=== PATIENT | male | born 1975 | race Caucasian/White ===

== ENCOUNTER 2018-10-14 07:21 | Observation (INO) ==
[2018-10-14] MEDS ORDERED: Sodium Chloride 0.9% 1,000 ML PRIMARY IV ONE (07:42)
[2018-10-14] MEDS ORDERED: ASPIRIN 81 MG (BABY) CHEWABLE TABLET PO ONE (07:42)
--- NOTE | 2018-10-14 07:43 | EKG ---
[address] [address] Measurements Intervals [place] Rate: 68 P: 14 MT: 146 QRS: 67 QRSD: 92 T: 36 QT: 361 QTc: 378 Interpretive Statements SINUS RHYTHM WITH SINUS ARRHYTHMIA No previous ECG available for comparison Electronically Signed On 10-14-18 12:21:52 MST by Vignesh Marcano [id number]
[2018-10-14 07:47] LABS: BASOPHILS # (AUTO) 0.03 10*3/UL; BASOPHILS % (AUTO) 0.3 % (0-1); EOSINOPHILS # (AUTO) 0.26 10*3/UL; EOSINOPHILS % (AUTO) 2.7 % (0-8); Hematocrit [HCT] 49.4 % (42.0-52.0); Hemoglobin [HGB] 17.4 g/dL (14.0-18.0); LYMPHOCYTES # (AUTO) 2.69 10*3/uL; MEAN CORPUSCULAR HEMOGLOBIN 31.8 PG (27-31); MEAN CORPUSCULAR HGB CONC 35.2 g/dL (33-37); MEAN CORPUSCULAR VOLUME 90.3 FL (80-90); MEAN PLATELET VOLUME 10.5 FL (7.4-12.2); MONOCYTES # (AUTO) 0.74 10*3/UL (0.3-0.8); MONOCYTES % (AUTO) 7.7 % (5-15); NEUTROPHILS # (AUTO) 5.85 10*3/UL; NEUTROPHILS % (AUTO) 60.9 % (50-80); RED BLOOD COUNT 5.47 10^6/uL (4.70-6.10)
[2018-10-14 07:48] LABS: PLATELET MORPHOLOGY COMMENT NORMAL MORPHOLOGY (NORM); RBC MORPHOLOGY COMMENT NORMAL MORPHOLOGY (NORM); WBC MORPHOLOGY COMMENT NORMAL MORPHOLOGY (NORM)
[2018-10-14 07:58] LABS: BLOOD UREA NITROGEN 19 mg/dL (7-22); BUN/CREATININE RATIO 17.27 (6-20); SERUM ALBUMIN 5.3 g/dL (3.5-4.8)
--- NOTE | 2018-10-14 08:16 | DI ---
XR CXR 1VW 10/14/2018 7:42 AM [place] [facility] [place] Comparison: None. Findings: A single portable frontal view of the chest is submitted. Images demonstrate a small left pleural effusion with no focal consolidation. There is no large pneum othorax. The cardiomediastinal silhouette is within normal limits for technique. The osseous structur es are grossly unremarkable. Impression: Small left pleural effusion without focal consolidation.
--- NOTE | 2018-10-14 08:44 | PDOC ---
Chest Pain HPI - General Chief Complaint: Chest Pain Stated Complaint: CHEST PAIN Date Seen by Provider: 10/14/18 Time Seen by Provider: 07:25 Source: Patient, EMS Exam Limitations: POSITIVE: No limitations Treatment Prior to Arrival: REPORTS: Nitroglycerin, Oxygen, Aspirin Nurse's Notes Reviewed & Considered: Yes EMS Report Reviewed & Considered: Verbal - History of Present Illness Initial Comments: The patient is a 43-year-old male who arrives to the emergency room by walter mazariegos. 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 He states that he felt "like someone sitting on my chest" and states at least chest felt "tight" he states he had some associated nausea and vomited one time. Paramedics administered oxygen, 4 baby aspirin and a nitroglycerin sublingual, and the patient states that his chest pain improved fairly shortly thereafter. Patient rated the intensity of the chest pain as an 8-10 on a scale of 10 at the time the ambulance was summoned. Upon presentation to the emergency room the patient states that his pain is essentially gone. Patient has a history of asthma and GERD. No known cardiac problems. He smokes a pack of cigarettes per day. Body Location Affected: REPORTS: Chest Timing: REPORTS: Abrupt Duration: 1 hour Severity: Moderate Gone now, lasted (minutes):: 50 Context: REPORTS: Activity (Sitting in a van at work) Quality: REPORTS: "Pain", Pressure, Other ("Tightness ") Radiation: REPORTS: Shoulder (L) Associated Symptoms: REPORTS: Nausea, Vomiting (Times one), Shortness of Breath Modifying Factors: improves with: Nitroglycerin (Relieved following nitroglycerin administered by paramedics in the field), Oxygen, Aspirin Similar Symptoms Previously: No Recently seen/treated/hospitalized: No Any Prior Injuries Related to Current Complaint?: No - Patient Home Medications Home Medications: Home Medications Albuterol Neb Soln 0.083% 2 puff INHALATION Q4H PRN PRN 10/14/18 Mometasone/Formoterol [Dulera 200 Mcg/5 Mcg Inhaler] 2 puff INHALATION BID 10/14/18 - Patient Allergies Allergies/Adverse Reactions: Allergies Allergy/AdvReac Type Severity Reaction Status Date / Time No Known Allergies Allergy Verified 10/14/18 07:22 Past Medical History - heen HEENT History: Denies History Cardiovascular History: Denies History Respiratory History: Asthma Gastrointestinal History: GERD Genitourinary History: Denies History Endocrine History: Denies History Musculoskeletal History: Denies History Neurological History: Denies History Blood Disorders: Denies History Psychiatric History: Denies History History of Sexually Transmitted Diseases: No Male Reproductive History: Denies History Cancer History: Denies History In Past Year Been Physically Harmed or Verbally Threatened: No History of MDRO: No History of Other Communicable Diseases: No Tobacco Use: Current Every Day Smoker In the Past 12 Months, Have Used or Abuse Any Substance: None Previous Surgical History: Yes Type / Date of Surgery: tonsils Significant Family History: No pertinent family hx Past Medical History Reviewed: Reviewed - No Changes ROS - Limitations ROS Limitations: No Limitations Constitution: REPORTS: Denies Symptoms Cardiovascular: REPORTS: Chest Pain Respiratory: REPORTS: Shortness Of Breath Neurological: REPORTS: Denies Neuro Symptoms Gastrointestinal: REPORTS: Nausea, Vomitting (1 at onset; no nausea presently) Endocrine: REPORTS: Denies Symptoms Musculoskeletal: REPORTS: Denies MS Symptoms Genitourinary: REPORTS: Denies Symptoms Eyes: REPORTS: Denies Symptoms ENT: REPORTS: Denies Symptoms Skin: REPORTS: Denies Skin Symptoms Lympathic: REPORTS: Denies Lympathic Symptoms Immunologic: POSITIVE: Denies Symptoms Psychiatric: POSITIVE: Denies Psych Symptoms Chest Pain PE - General Appearance General Appearance: REPORTS: Alert, Cooperative, No Acute Distress, No Evidence of Trauma - HEENT HEENT: POSITIVE: Head Inspection Nml, Eyes Inspection Nml, Ears Inspection Nml, Nose Inspection Nml, Oral/Dental Inspect. Nml, Pharynx Inspect. Nml, PERRL, EOMI - Neck Neck: REPORTS: Normal Inspection, No Carotid Bruit - Respiratory Respiratory: REPORTS: No Respiratory Distress, Breath Sounds Normal, Chest Non- Tender - Cardiovascular Cardiovascular: REPORTS: Regular Rate and Rhythm, Heart Sounds Normal, Equal Pulses, Strong Pulses, No Murmur, No Gallop, No Friction Rub, No JVD Peripheral Pulses: Radial (R): 2+, Radial (L): 2+ - Abdomen Abdomen: Soft: (All Quadrants), Normal Bowel Sounds: (All Quadrants), Denies Tenderness: (All Quadrants), No Splenomegaly: (All Quadrants), No Hepatomegaly: (All Quadrants), No Guarding: (All Quadrants), No Rebound: (All Quadrants), No Palpable Pulse: (All Quadrants), No Palpabale Mass: (All Quadrants), No Distention: (All Quadrants), No Rigidity: (All Quadrants) - Skin Skin: REPORTS: Intact, Normal For Race, Warm, Dry, No Rash - Extremities Extremity: Non-Tender: (All Extremities), Normal ROM: (All Extremities), Normal Inspection: (All Extremities) - Neurological / Psychological Neurological: POSITIVE: Affect Apporpriate, Oriented X3, 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, Motor Normal, Sensation Normal Images - Complete Complete: 1 - Area described chest pain Chest Pain Progress - Results Reviewed by me Xrays/CTs/US Reviewed by me: Yes Discussed with Radiologist: Yes Radiology Findings: Chest x-ray shows a small left pleural effusion Lab Results Reviewed by Me: Yes (d-dimer and troponin negative) CBC and BMP: 10/14/18 07:00 10/14/18 07:00 Lab Results:: Laboratory Results 10/14/18 10/14/18 10/14/18 07:00 07:00 07:00 WBC 9.61 RBC 5.47 Hgb 17.4 Hct 49.4 MCV 90.3 H MCH 31.8 H MCHC 35.2 RDW Std Deviation 44.3 RDW Coeff of Lora 13.5 Plt Count 221 MPV 10.5 Immature Gran % (Auto) 0.4 Neut % (Auto) 60.9 Lymph % (Auto) 28.0 Shannon % (Auto) 7.7 Eos % (Auto) 2.7 Baso % (Auto) 0.3 Immature Gran # (Auto) 0.04 Neut # (Auto) 5.85 Lymph # (Auto) 2.69 Shannon # (Auto) 0.74 Eos # (Auto) 0.26 Baso # (Auto) 0.03 WBC Morphology Comment Normal morphology Plt Morphology Comment Normal morphology RBC Morph Comment Normal morphology D-Dimer 0.19 Sodium 144 Potassium 4.2 Chloride 106 Carbon Dioxide 24 Anion Gap 14 BUN 19 Creatinine 1.1 Estimated GFR > 60 BUN/Creatinine Ratio 17.27 Glucose 86 Calculated Osmolality 298.0 H Calcium 10.2 Total Bilirubin 0.8 AST 32 ALT 20 L Alkaline Phosphatase 81 CK-MB (CK-2) Troponin I Total Protein 8.9 H Albumin 5.3 H Globulin 3.6 Albumin/Globulin Ratio 1.40 10/14/18 07:00 WBC RBC Hgb Hct MCV MCH MCHC RDW Std Deviation RDW Coeff of Lora Plt Count MPV Immature Gran % (Auto) Neut % (Auto) Lymph % (Auto) Shannon % (Auto) Eos % (Auto) Baso % (Auto) Immature Gran # (Auto) Neut # (Auto) Lymph # (Auto) Shannon # (Auto) Eos # (Auto) Baso # (Auto) WBC Morphology Comment Plt Morphology Comment RBC Morph Comment D-Dimer Sodium Potassium Chloride Carbon Dioxide Anion Gap BUN Creatinine Estimated GFR BUN/Creatinine Ratio Glucose Calculated Osmolality Calcium Total Bilirubin AST ALT Alkaline Phosphatase CK-MB (CK-2) < 0.22 Troponin I < 0.012 Total Protein Albumin Globulin Albumin/Globulin Ratio EKG Interpreted/Reviewed By Me:: Yes (normal) EKG Interpretation:: POSITIVE: Normal Sinus Rhythm, Normal Rate, Normal Intervals, Normal Jennings, Normal QRS, Normal ST/T - Patient's Progress Pain Medication Addressed: POSITIVE: Other (Please Comment) (Patient had apparent relief with of chest pain with nitroglycerin, aspirin and oxygen start ed in the field by paramedics) School/Work Release Addressed: POSITIVE: Not Applicable Re-Examine Time: 08:40 Re-Examine Comment: Patient remained comfortable in the emergency room. Case discussed with the patient and the hospitalist on-call, . He was decided to admit the patient to rule out a cardiac etiology of his chest pain, and to further evaluate his left pleural effusion. Status: POSITIVE: Improved, Re-Examined Quality Measure Initiative: CP/AMI: POSITIVE: EKG, ASA - Consult Consult (If Yes, Name of Consulting MD & Time Called): Yes (, hospitalist, [id number] ) Consulting MD will see pt:: POSITIVE: In ED, [facility] [place] Admit Counseled: POSITIVE: Patient, RE: Lab Results, RE: Radiology Results, RE: DX, RE: Need for F/U Patient Care Time - Estimated PCT Patient Care Time (In Minutes): 45 Vital Signs - Recent Vital Signs Vital Signs: Blood pressure 115/82, heart rate 75, respiratory rate 16, temperature 90.8F, oxygen saturation on room air 94%. - VS Reviewed Vital Signs Reviewed: Yes Discharge Clinical Impression: Pleural effusion, Chest pain Condition: Fair Follow Up With: NONE,NONE [Primary Care Provider] - Date Decision to Admit to Inpatient: 10/14/18 Time Decision to Admit to Inpatient: 08:40
--- NOTE | 2018-10-14 09:12 | PDOC ---
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 He woke up this morning about 6 AM with chest pain radiating to the left arm and jaw accompanied by nausea and diaphoresis. The pain resolved after he had the nitroglycerin in the ER and is now chest pain-free. Other risk factors one pack of cigarettes a day Past Medical History Medical History: Asthma Tobacco Use: Current Every Day Smoker In the Past 12 Months, Have Used or Abuse Any of the Following Substance: None Medication / Allergies Home Medications: Home Medications Medication Instructions Recorded Confirmed Type Albuterol Neb Soln 0.083% 2 puff INHALATION Q4H PRN PRN 10/14/18 10/14/18 History Mometasone/Formoterol [Dulera 200 2 puff INHALATION BID 10/14/18 10/14/18 History Mcg/5 Mcg Inhaler] Allergies/Adverse Reactions: Allergies Allergy/AdvReac Type Severity Reaction Status Date / Time No Known Allergies Allergy Verified 10/14/18 07:22 Review of Systems - Review of Systems All Systems: Reviewed & No Additional Complaints Except as Stated - Cardiovascular Cardiovascular: REPORTS: Chest Pain. DENIES: Edema, Syncope, Palpitations - Gastrointestinal Gastrointestinal / Abdominal: REPORTS: Nausea - Neurological Neurologic: REPORTS: Negative System Review. DENIES: Headache, Numbness/Paresthesia, Tremors, Weakness, Seizures, Head Trauma, LOC, Dizziness, Confusion, Memory Loss, Difficulty Walking, Incoordination, Other, See HPI Exam - General General Appearance: No Acute Distress, Cooperative - Head Head Exam: Normal Inspection, Normocephalic, Atraumatic - Eye Eye Exam: POSITIVE: Normal Appearance, PERRL, EOMI, No Scleral Icterus - Neck Neck Exam: Normal Inspection, Full ROM, No Tenderness, No Lymphadenopathy, No Thyromegaly, JVP is not Raised - Respiratory Respiratory Exam: POSITIVE: Clear to Auscultation - Bilaterally, Breathing Non Labored, Normal To Percussion, Normal to Percussion and Palpation - Cardiovascular Cardiovascular Exam: POSITIVE: RRR, No Murmur, No Clicks, No Gallops, No Rubs, PMI Non-Displaced - GI/Abdominal GI/Abdominal Exam: POSITIVE: Normal Bowel Sounds, Non Tender, Non Distended, Soft, No Masses, No Hepatomegaly, No Splenomegaly, No Organomegaly - Extremities Extremities Exam: POSITIVE: No Clubbing Present, No Edema Present, No Cyanosis Present Results - Labs CBC and BMP: 10/14/18 07:00 10/14/18 07:00 Assessment and Plan - Patient Problems (1) Chest pain Current Visit: Yes Status: Acute Comment: Patient is now chest pain-free he received his aspirin we will order Lexiscan stress test risk factors a smoker one pack a day. He does have a left pleural effusion on chest x-ray and the sudden onset of this presentation we will get a CTA to rule out PE or even possible pneumonia underlying the pleural effusions which we cannot see on x-ray Code(s): R07.9 - Chest pain, unspecified (2) Pleural effusion Current Visit: Yes Status: Acute Code(s): J90 - Pleural effusion, not elsewhere classified
[2018-10-14] MEDS ORDERED: CALCIUM CARBONATE 500 MG (TUMS) CHEWABLE TABLET PO PRN (09:35)
[2018-10-14] MEDS ORDERED: NITROGLYCERIN 0.4 MG SL TAB (BOTTLE OF 3) SL PRN (09:35)
[2018-10-14] MEDS ORDERED: LIDOCAINE W/ SODIUM BICARB 0.5 ML SYR SUBD PRN (09:35)
--- NOTE | 2018-10-14 09:51 | DI ---
CT CTA Chest Non-Coronary WWO 10/14/2018 8:43 AM [place] [facility] [place]/pleural [place]usion Comparison: Chest x-ray from earlier the same day. Procedure: CT angiography of the pulmonary arteries was performed after the administration of 65 mL o f Isovue intravenous contrast. Findings: There is normal opacification of the pulmonary arteries with no evidence of filling defect. Evaluation of the lungs demonstrates bibasilar and partial lingular atelectasis with no consolidatio n, pneumothorax, or pleural effusion. There is also a prominent epicardial fat pad. The atelectatic l ingula and prominent epicardial fat pad most likely created the artifact simulating a pleural effusio n. No pulmonary nodules are noted. There is mild diffuse bronchial wall thickening with no endobronch ial lesion. There is no mediastinal or hilar lymphadenopathy. The aorta and branch vessels demonstrat e normal course and caliber. Heart size is within normal limits with no pericardial effusion. The thy roid exhibits normal CT morphology. The visualized upper abdominal structures are unremarkable. The osseous structures are normal for age. There is no evidence of acute or healing rib fractures. Impression: 1. No main or segmental pulmonary embolism. 2. There is diffuse bronchial wall thickening without endobronchial lesion. This is a non-specific fi nding that is most commonly seen in the setting of acute or chronic bronchitis, as well as reactive a irways disease. There is partial lingular atelectasis. Repeat imaging 6 weeks following completion of therapy is recommended in order to ensure resolution. 3. The left pleural effusion noted on the recent chest x-ray was most likely due to artifact from felipe gular atelectasis and prominent epicardial fat.
[2018-10-14] MEDS: cefTRIAXone Inj 2 GM in Sodium Chloride 0.9% 100 ML IV SCH (10:56)
[2018-10-14] MEDS: NICOTINE 21 MG /DAY PATCH TRANSDERM SCH (13:47)
[2018-10-14] MEDS ORDERED: ALBUTEROL SULFATE INH PRN (19:32)
[2018-10-14] MEDS: OMEPRAZOLE 20 MG CAPSULE PO SCH (19:49)
[2018-10-15 05:34] LABS: CHOL/HDL RATIO 4.77 RATIO (0-4.0)
[2018-10-15] MEDS: OMEPRAZOLE 20 MG CAPSULE PO SCH (08:16)
[2018-10-15] MEDS ORDERED: DULERA INH SCH ×2 (09:00→19:00)
[2018-10-15] MEDS ORDERED: Patch Removal PATCH TRANSDERM SCH (09:00)
--- NOTE | 2018-10-15 11:11 | STRESSTEST ---
[facility] Interpretive Statements 43 yo male admitted with chest pain with neg trops . no acute changes on ekg portion. will await imaging [id number]
[2018-10-15] MEDS: NICOTINE 21 MG /DAY PATCH TRANSDERM SCH (11:30)
[2018-10-15] MEDS: cefTRIAXone Inj 2 GM in Sodium Chloride 0.9% 100 ML IV SCH (11:30)
[2018-10-15] MEDS ORDERED: Magnesium Sulfate 2gm (Premix) 2 GM/50 ML BAG IV ONE (13:28)
--- NOTE | 2018-10-15 13:40 | EKG ---
[address] [address] Measurements Intervals [place] Rate: 94 P: 29 ID: [id number] QRS: 98 QRSD: 90 T: 34 QT: 337 QTc: 388 Interpretive Statements SINUS RHYTHM RIGHTWARD AXIS Compared to ECG 10/14/2018 07:27:01 Sinus arrhythmia no longer present Electronically Signed On 10-15-18 14:48:42 MST by Vignesh Marcano [id number]
--- NOTE | 2018-10-15 15:49 | DI ---
2 DAY LEXISCAN STRESS & REST MYOCARDIAL PERFUSION SCANS, 10/14/2018 9:35 AM : [place] [facility] [place] Comparison: None at this facility. The patient was stressed by Dr. Roth. The standard Lexiscan protocol was used. Please see the Doctor's report. Stress scans were performed on 10/15/2018; the resting scans were performed on 10/14/2018. At the designated time following commencement of stress testing, 34.1 mCi of Tc-99m Sestamibi was inj ected IV. Stress gated tomograms were acquired within one hour of the injection. For the resting scans, 37.5 mCi was injected IV and resting gated tomograms were acquired in a simila r fashion. Quantitative and qualitative analyses were performed. Quantitative analysis was performed with the [place] [facility] [id number] protocols. Very low dose limited CT scans of the chest are o btained through the level of the heart for attenuation correction of the stress and rest cardiac SPEC T data. Attenuation corrected and non-attenuation corrected scans were processed for review, and the attenuation corrected scans were used for final interpretation of this study. Gating information reveals 100 % accepted beats. There is no significant breast attenuation. There is no significant diaphragmatic attenuation. There is no significant gut cross talk. There is a small mild reversible defect involving the distal anterior wall. Summed Stress Score (SSS) is 4 and Summed Difference Score (SDS) is one. There is normal wall motion. There is no significant wall thickening. Stress and rest left ventricular ejection fraction (LVEF) are 64 % and 67 %, respect ively. Transient ischemic dilatation ratio (TID) is 1.12, with a normal range up to 1.2 for patients stressed with the Daniel protocol and up to 1.4 for patients stressed with the Lexiscan protocol. The very low dose CT scans through the level of the heart show no coronary artery calcifications. Bib asilar dependent atelectasis is noted. Mild centrilobular emphysema is noted in the lung apices. Ther e is no adenopathy or evidence of lung nodules. Captured upper abdominal solid organs and hollow visc era are unremarkable. Impression: 1. A small mild reversible defect involving the distal anterior wall. 2. Normal wall motion on stress and rest. 3. Stress and rest LVEF are 64 % and 67 %, respectively. 4. TID ratio is 1.12. 5. Mild centrilobular emphysema in the lung apices.
--- NOTE | 2018-10-15 18:06 | DCSUMMARY ---
Hospitalization Summary Hospital Course: Final Discharge Diagnosis: Current Visit Problems Problem Status Onset Code Pleural effusion Acute J90 Chest pain Acute R07.9 Diagnostic Data, Laboratory Data, and Procedures of Signifigance: Laboratory Results 10/14/18 10/15/18 10/15/18 19:46 01:50 05:00 D-Dimer < 0.19 Troponin I < 0.012 < 0.012 Triglycerides Cholesterol LDL Cholesterol, Calc VLDL Cholesterol HDL Cholesterol Cholesterol/HDL Ratio TSH Free T4 10/15/18 10/15/18 10/15/18 05:00 05:00 13:41 D-Dimer Troponin I < 0.012 Triglycerides 105 Cholesterol 167 LDL Cholesterol, Calc 111.000 VLDL Cholesterol 21 HDL Cholesterol 35 L Cholesterol/HDL Ratio 4.77 H TSH 2.64 Free T4 1.06 History and Physical pertinent to Admission: Course of Hospitalization: This very nice 43-year-old gentleman with the risk factors of smoking and also has a history of asthma comes into the hospital because of intermittent chest pain. Lexiscan was done and showed a reversible defect I will include the results of the test below. He also had some chest pain and unstable angina after the stress test relieved by nitroglycerin sublingual. 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 On the date of discharge, the patient was examined: Gen.: [No acute distress, alert, nontoxic] Heart: [Regular rate and rhythm, no murmurs, clicks, gallops, or rubs] Lungs: [Clear to auscultation bilaterally, breathing is nonlabored] Abdomen/GI: [Normal tones on auscultation, soft, nontender, nondistended] Musculoskeletal/extremities: [No clubbing, cyanosis, or edema] Vitals reviewed and are listed below Vital Signs (24 hrs) 10/14/18 19:00 10/14/18 21:00 10/14/18 23:00 Temperature 97.7 F Pulse Rate 65 79 Pulse Rate [Pulse Oximeter] 68 Pulse Rate [Telemetry] Respiratory Rate 18 Blood Pressure [Right Arm] 128/84 Pulse Ox 98 95 10/15/18 01:00 10/15/18 03:00 10/15/18 04:25 Temperature 98.2 F 98.0 F Pulse Rate 61 Pulse Rate [Pulse Oximeter] 73 81 Pulse Rate [Telemetry] Respiratory Rate 18 20 Blood Pressure [Right Arm] 112/71 102/67 Pulse Ox 91 94 94 10/15/18 07:00 10/15/18 07:50 10/15/18 11:00 Temperature 97.2 F Pulse Rate 64 71 Pulse Rate [Pulse Oximeter] 72 Pulse Rate [Telemetry] 61 Respiratory Rate 12 Blood Pressure [Right Arm] 117/78 Pulse Ox 96 96 95 10/15/18 12:01 10/15/18 15:00 10/15/18 16:58 Temperature 97.9 F 97.9 F Pulse Rate Pulse Rate [Pulse Oximeter] 78 83 Pulse Rate [Telemetry] Respiratory Rate 20 16 Blood Pressure [Right Arm] 127/79 124/82 Pulse Ox 94 96 93 Assessment and Plan: 1. As per discharge assessments above 2. Disposition: [facility] accepted by Dr. Garcia 3. Condition on discharge, stable and improved. 4. Diet: regular diet 5. Activities: resume normal activities 6. Follow-Up: 1. [PCP] 2. 7. Medications at the Time of Discharge: Home Medications Medication Instructions Recorded Confirmed Type Albuterol Neb Soln 0.083% 2 puff INHALATION Q4H PRN PRN 10/14/18 10/14/18 History Mometasone/Formoterol [Dulera 200 2 puff INHALATION BID 10/14/18 10/14/18 History Mcg/5 Mcg Inhaler] Nicotine 21mg Patch [Nicoderm CQ 1 patch TRANSDERM DAILY patch 10/15/18 Rx 21mg Patch] 8. Time, care, counseling and coordination of care for this discharge is greater than 30 minutes. Exam - Vitals Vital Signs: Vital Signs Temperature 97.9 F Temperature Source Temporal Artery Scan Pulse Rate [Telemetry] 61 Pulse Rate [Pulse Oximeter] 83 Pulse Rate 71 Respiratory Rate 16 Blood Pressure [Right Arm] 124/82 Blood Pressure 127/92 Pulse Ox 93 Oxygen Flow Rate 1 Oxygen Delivery Method Room Air Height 6 ft 1 in Weight 207 lb 12.8 oz Patient Problems - Patient Problem List (1) Chest pain Current Visit: Yes Status: Acute Code(s): R07.9 - Chest pain, unspecified Category: Medical (2) Pleural effusion Current Visit: Yes Status: Acute Code(s): J90 - Pleural effusion, not elsewhere classified Category: Medical
[2018-10-15] MEDS ORDERED: ATORVASTATIN 40 MG TABLET PO ONE (18:11)
[2018-10-15] MEDS ORDERED: ASPIRIN 325 MG TABLET PO ONE (18:12)
[2018-10-15] MEDS ORDERED: LORazepam 2 MG/1 ML VIAL IVP STA (18:23)
== END 2018-10-15 19:05 | disposition short-term general hospital (02) ==
LOC: MED/SURG 07:21 → ER 07:21 → MED/SURG 09:31
PROVIDERS: ADMIT Internal Medicine; ATTEND Internal Medicine